=== PATIENT | female | born 1940 | race Caucasian/White ===

== ENCOUNTER 2018-08-23 08:47 | Day surgery (SDC) | payer OTHER, MEDICARE ==
[2018-08-20 16:19] VITALS: BMI 38.5
[~2018-08-23 08:47] MED LIST: LIDOCAINE 1%/EPI 1:100000 (50 ML MULTI DOSE VIAL) INF ONE
[2018-08-23] MEDS ORDERED: LACTATED RINGERS SOLUTION 1,000 ML IV SCH (09:45)
[2018-08-23] MEDS ORDERED: oxyCODONE HCL 5 MG TABLET PO PRN (09:45)
[2018-08-23] MEDS ORDERED: ONDANSETRON 4 MG/2 ML VIAL IVPUSH PRN (09:45)
[2018-08-23] MEDS ORDERED: BUPIVACAINE HCL/PF (5 MG/ML) 30 ML VIAL IJ ONE ×2 (10:52→11:18)
[2018-08-23] MEDS ORDERED: MIDAZOLAM HCL 2 MG/2 ML SINGLE DOSE VIAL ONE (10:52)
[2018-08-23] MEDS ORDERED: DEXAMETHASONE SOD PHOSPHATE 4 MG/1 ML VIAL ONE ×2 (10:52→12:24)
[2018-08-23] MEDS ORDERED: DEXAMETHASONE SOD PHOSPHATE/PF 10 MG/ML SDV ONE (11:16)
--- NOTE | 2018-08-23 11:17 | HP ---
History & Physical Update - History History: No Change - Physical Physical: No Change - Assessment Assessment: No Change - Plan Plan: No Change
[2018-08-23] MEDS ORDERED: methylPREDNISolone ACET (DEPO) 40 MG/1 ML VIAL ONE (11:22)
[2018-08-23] MEDS ORDERED: THROMBIN (RECOMBINANT) 5,000 UNIT VIAL TP ONE (11:22)
[2018-08-23] MEDS ORDERED: LIDOCAINE 1%/EPI 1:100000 (20 ML MULTI DOSE VIAL) ONE ×2 (11:22→12:28)
[2018-08-23] MEDS ORDERED: ONDANSETRON 4 MG/2 ML VIAL ONE (12:24)
[2018-08-23] MEDS ORDERED: ceFAZolin SODIUM 1 GM VIAL ONE (12:24)
[2018-08-23] MEDS ORDERED: LIDOCAINE 1%/EPI 1:100000 (50 ML MULTI DOSE VIAL) INF ONE (12:30)
[2018-08-23] MEDS ORDERED: GELATIN SPONGE,ABSORBABLE 1 GM PACKET TP ONE (12:42)
[2018-08-23] MEDS ORDERED: THROMBIN (BOVINE) 5,000 UNIT VIAL TP ONE (12:42)
[2018-08-23] MEDS ORDERED: methylPREDNISolone ACET (DEPO) 40 MG/1 ML VIAL IM ONE (13:30)
--- NOTE | 2018-08-23 14:08 | SURG ---
Surgery River [facility] Note River Rat: Snehal Melissa PA-C Date of Service: 08/23/18 Diagnosis: lumbar stenosis Procedure: laminectomy of L4-L5 I was present for the entirety of the operative procedure. For further detail, please refer to operative report. Visit type - Case Type Case Type: Scheduled - Emergency Emergency Visit: No - New patient This patient is new to me today: Yes Date on this admission: 08/23/18
--- NOTE | 2018-08-23 14:09 | OP ---
Operative Note - Note: Operative Date: 08/23/18 Pre-Operative Diagnosis: lumbar stenosis Operation: laminectomy of L4-L5 Surgeon: Davis Almaraz Soldering Machine Operator Automatic: Snehal Melissa Anesthesiologist/STORE STOCK ASSOCIATE: Estela Paul Anesthesia: Spinal Estimated Blood Loss (mls): 30 Fluid Volume Replaced (mls): 1,000 Operative Report Dictated: Yes
[2018-08-23] MEDS ORDERED: oxyCODONE HCL 5 MG TABLET ONE (15:17)
[2018-08-23 16:47] VITALS: TEMP 98
[2018-08-23 16:49] VITALS: BP 112/71; PULSE 68
--- NOTE | 2018-08-24 10:33 | OP ---
DATE OF OPERATION: 08/23/2018 PREOPERATIVE DIAGNOSIS: Spinal stenosis, L4-5. POSTOPERATIVE DIAGNOSIS: Spinal stenosis, L4-5. PROCEDURE PERFORMED: Removal extradural synovial cyst. SURGEON: Davis Almaraz MD NECK BAND MAKER: HERBERT Clements ESTIMATED BLOOD LOSS: 50 mL. INTRAVENOUS FLUIDS: Per Anesthesia. ANESTHESIA: Spinal/TLIP. COMPLICATIONS: None. DISPOSITION: Patient brought to the PACU in stable condition. INDICATION FOR SURGERY: Patient is a 77-year-old female who has been suffering from pain from her back down his legs. X-rays and MRI were completed which showed that he had spinal stenosis at L4-5 secondary to a synovial cyst. She had gone through an exhaustive course of treatment which included medications, physical therapy, as well as injections. Unfortunately, her pain continued to persist despite all this. Risks, benefits, and alternatives are discussed, and the patient consented to surgery. OPERATIVE NOTE: Patient was brought to the operating room by the Anesthesia staff after appropriate patient identification was performed. Spinal anesthesia was given. TLIP block was given. Patient was able to position herself prone onto the OR table with all areas of bony prominence well padded at this time. Two needles were placed in the back to kym off the L4-L5 segments. X-ray was taken to confirm this was correct. Needle was removed, and 10 mL of lidocaine with epinephrine was injected into the back. At the time, her back was prepped and draped in a sterile manner. At this point, timeout was completed. An incision was made from the top of L4 down to the bottom of L5. Dissection was carried down to the fascia. The fascia was then split open at this time, and appropriate retractors were placed in. A spinal needle was placed onto the L4 lamina to kym off the L4-5 disk space. X-ray was taken to confirm this was correct. Needle was removed, and interspinous ligament of L4-5 was removed. Portion of L4 and L4 spinous processes were removed. The flavum was identified, and it was removed. Synovial cyst was identified, and it was peeled off of the dura, and it was removed. By the end of the procedure, both L5 nerve roots appeared to be well decompressed. All bleeding was well controlled at this time. Steroids were placed over the nerve root. FloSeal was placed over that. The fascia was closed with a number 1 Vicryl sutures. Subcutaneous tissue was closed with 2-0 Vicryl sutures. Skin was closed with 3-0 Monocryl sutures. Dermabond was applied. Steri-Strips were applied. Sterile dressing was applied. Patient was placed supine on the OR bed and brought to the PACU in stable condition. Carmelita CARTER/[id number]
== END 2018-08-23 17:30 | disposition home or self-care (01) ==
LOC: FASU 08:47 → EDBD 10:15 → EDSTATUS 10:15 → FASU 17:30
PROVIDERS: ATTEND Orthopaedic Surgery Orthopaedic Surgery of the Spine
PROC: 00BT0ZX Excision of Spinal Meninges, Open Approach, Diagnostic (ICD-10-PCS; 2018-08-23)
PROC: 01NB0ZZ Release Lumbar Nerve, Open Approach (ICD-10-PCS; principal; 2018-08-23 12:40)
DX: M48.061 Spinal stenosis, lumbar region without neurogenic claudication (principal); M71.38 Other bursal cyst, other site
CPT/HCPCS: 72100-TC-FY; 94760